=== PATIENT | female | born 1945 | race Caucasian/White ===

== ENCOUNTER → 2024-01-26 14:18 | Outpatient (REF) | payer OTHER, SELFPAY ==
[2024-01-26 19:14] LABS: ALT (SGPT) 23 U/L (0-35); AST (SGOT) 37 U/L (14-36); Albumin 4.8 g/dl (3.5-5.0); Alkaline Phosphatase 83 U/L (38-126); Blood Urea Nitrogen 33 mg/dl (7-17); Calcium 10.4 mg/dl (8.4-10.2); Carbon Dioxide 27 mmol/L (22-30); Chloride 99 mmol/L (98-107); Glucose 89 mg/dl (70-99); Potassium 5.3 mmol/L (3.5-5.1); Sodium 136 mmol/L (135-145); Total Bilirubin 0.9 mg/dl (0.2-1.3); Total Protein 7.6 g/dl (6.3-8.2); eGFR 51.43
== END ==
LOC: CLAB 14:18
PROVIDERS: ATTENDING PHYSICIAN Family Medicine
DX: N18.31 Chronic kidney disease, stage 3a (principal); R74.8 Abnormal levels of other serum enzymes
CPT/HCPCS: 36415; 80053

== ENCOUNTER 2024-04-21 17:25 | Emergency (ER) | payer OTHER, SELFPAY ==
[2024-04-21 17:27] VITALS: BP 127/69
[2024-04-21 17:47] LABS: % Basophils 0.2 % (0-2); % Eosinophils 0.5 % (0-6); % Immature Granulocytes 0.2 % (0-0.5); % Lymphocytes 15.8 % (20.5-51.1); % Neutrophils 70.3 % (42.2-75.2); Absolute Lymphocytes 0.9 10^3/uL (1.2-3.4); Absolute Monocytes 0.7 10^3/uL (0.1-0.6); Hematocrit 34.6 % (37.0-47.0); Mean Corp Hgb Conc. 34.7 g/dL (33.0-37.0); Mean Corpuscular Hgb 29.2 pg (27.0-31.0); Mean Corpuscular Volume 84.2 fL (81.0-99.0); Nucleated Red Blood Cells % 0 %; Platelet Count 152 10^3/uL (130-400); Red Blood Cell Count 4.11 10^6/uL (4.20-5.40); Red Cell Dist. Width 13.4 % (11.5-14.5); White Blood Cell Count 5.7 10^3/uL (4.8-10.8)
[2024-04-21 17:59] LABS: Lactic Acid 1.4 mmol/L (0.7-2.0)
[2024-04-21 18:01] LABS: ALT (SGPT) 79 U/L (0-35); AST (SGOT) 85 U/L (14-36); Albumin 4.6 g/dl (3.5-5.0); Alkaline Phosphatase 80 U/L (38-126); Blood Urea Nitrogen 38 mg/dl (7-17); Calcium 10.1 mg/dl (8.4-10.2); Carbon Dioxide 23 mmol/L (22-30); Chloride 101 mmol/L (98-107); Glucose 93 mg/dl (70-99); Potassium 4.7 mmol/L (3.5-5.1); Sodium 136 mmol/L (135-145); Total Bilirubin 1.2 mg/dl (0.2-1.3); Total Protein 7.4 g/dl (6.3-8.2); eGFR 41.83
[2024-04-21 18:02] LABS: Lipase 236 U/L (23-300)
[2024-04-21 19:21] VITALS: BP 115/47
--- NOTE | 2024-04-21 19:52 | ED.GENMED ---
History of Present Illness
General
Chief Complaint: Abdominal Symptoms
Source: patient
Exam Limitations: none
Time Seen by Provider: 04/21/24 18:43
Nursing documentation reviewed up to this point in time: agreed with
History of Present Illness
History of Present Illness:
79 y/o F with h/o HTN, hld
former remote breast ca
started with diarrhea 2 days ago, probably about 12 episodes watery diarrhea and then vomitnig about 7-8 times
she says the diarrhea is less and less yesterday, just a few episodes but sometimes just leaks out when she urinates
she did vomit once or twcie yesteray but hasn't vmoited and took some pedialyte this mroning
she called her pcp whol told her to come in
pt says she feel sgenerally weak
she doesn't have any abdominal ppain now, says she had some when she had the diarrhea
her diarrhea ended up turning a darker color
no OTC meds tkane
Past History
Past History
ED Past Medical History: Other (agree with pmhx)
ED Past Surgical History: Other (agree with pshx)
Social History
Personal:
Living: with family
Review of Systems
Review of Systems
Allergies reviewed?: Yes
All Other Systems: Not applicable
Phy Exam
Physical Exam
Physical Exam:
GENERAL: Alert , in no apparent distress irritable,
EYE: pupils equal and reactive
NECK: Supple
ENT: o/p clr, mmm.
CARDIAC: Regular rate and rhythm .
LUNGS: Clear breath sounds bilaterally, no acute respiratory distress, no wheezes/rales/rhonchi
ABDOMEN: Soft, without focal tenderness, no r/g, no cvat, normal bowel sounds
Rectum, no hemorrhoids, some excoriation/erythema of her anus region, heme-negative brown stool
NEUROLOGICAL: Alert and oriented, no focal neuro deficits
SKIN: Warm and dry, skin intact.
MUSCULOSKELETAL: No edema, well perfused. neg makenna's sign
PSYCH: Normal and appropriate interaction.
Course
Orders/Labs/Results
Orders:
Orders
04/21/24 17:38
Complete Blood Count/With Diff Urgent
Comprehensive Metabolic Panel Urgent
Lactic Acid Urgent
Lipase Urgent
Blood Culture Urgent
LEÓN Source: Blood/Venous
Specimen Description:
04/21/24 19:37
0.9% Sodium Chloride 1000 ml [Nss] 1,000 ml IV BOLUS
04/21/24 20:08
Lactic Acid Urgent
Abnormal Lab Results
04/21/24
17:38
RBC 4.11 L 10^6/uL
(4.20-5.40)
Hct 34.6 L %
(37.0-47.0)
Absolute Lymphs (auto) 0.9 L 10^3/uL
(1.2-3.4)
Absolute Monos (auto) 0.7 H 10^3/uL
(0.1-0.6)
Lymphocytes % 15.8 L %
(20.5-51.1)
Monocytes % 13.0 H %
(1.7-9.3)
BUN 38 H mg/dl
(7-17)
Creatinine 1.3 H mg/dL
(0.6-1.0)
AST 85 H U/L
(14-36)
ALT 79 H U/L
(0-35)
04/21/24 17:38
04/21/24 17:38
Vital Signs
Initial and Last Documented VS:
Initial Vital Signs
Temp Pulse Resp BP Pulse Ox
98.2 F 68 20 127/69 98
04/21/24 17:27 04/21/24 17:27 04/21/24 17:27 04/21/24 17:27 04/21/24 17:27
Last Documented Vital Signs
Temp Pulse Resp BP Pulse Ox
98.2 F 68 20 115/47 95
04/21/24 17:27 04/21/24 17:27 04/21/24 17:27 04/21/24 19:21 04/21/24 19:22
MDM/Problems Addressed
Differential Diagnosis Includes:
Gastroenteritis, less likely diverticulitis, ischemic colitis, colitis
MDM/Problems Addressed:
79-year-old female with hypertension and high cholesterol presents for nausea vomiting and diarrhea which sounds to be diminishing in intensity over the last 12 hours however she does feel generally weak. She has not had significant abdominal pain,
fevers, syncope or lightheadedness. She was able to tolerate some Pedialyte today. On exam she is normotensive, afebrile, nontender abdomen, heme-negative brown stool. She does have a mild LOUANN with a creatinine of that is bumped up to 1.3.
Previously she had been in the 0.9 range but then bumped up to the 1.1 in January.
I did offer IV fluids and would check a lactate since she is reporting some dark stool however it was heme-negative. Her lactic acid was normal. I did discuss imaging given the fact that she has had previous diverticulosis on colonoscopy but the
patient has no fever, no pain and symptoms are resolving and she thus declined the CAT scan that I offered. Will hydrate and anticipate DC home as a suspected viral gastroenteritis. I do appreciate the patient's mild transaminitis again which is
likely to be related to a viral infection
04/21/2024 2100
pt had only received 200 ml of fliuids and demanded to be discharged
lactic normal
precautions given.
*Critical Care Note
Total Time (30-74mins, 75-104mins- exclusive of procedures): Not Applicable
ED Attending Note
-
Portions of this chart may have been created with voice recognition software.� Occasional wrong word or��sound alike� substitutions may have occurred due to the inherent limitations of voice recognition software.
Discharge Plan
Departure
Patient Disposition: Home (Routine Discharge)
Date of Disposition: 04/21/24
Time of Disposition: 21:16
Patient with high blood pressure during this ER visit?: No
Condition: Fair
Covid-19: Not Applicable
Discharge Problem:
Gastroenteritis, Dehydration
Instructions: Viral gastroenteritis in adults, Dehydration, Adult ED
Prescriptions:
No Action
anastrozole 1 MG tablet
1 mg PO DAILY
chlorpheniramine-phenylephrine [Actifed Cold-Allergy] 1 EACH tablet
1 tab PO DAILYPRN PRN (Reason: ALLERGIES)
vitamin A 8,000 UNIT capsule
PO DAILY
amlodipine 5 MG tablet
5 mg PO BID
calcium carbonate 600 MG tablet
600 mg PO DAILY
ascorbic acid (vitamin C) [Vitamin C] 500 MG tablet
1,000 mg PO DAILY
naproxen sodium [Aleve] 220 MG tablet
220 mg PO HSPRN PRN (Reason: HIP/KNEE PAIN)
vitamin E (dl, acetate) 100 UNITS capsule
PO DAILY
cholecalciferol (vitamin D3) 2,000 UNITS tablet
2,000 unit PO DAILY
Referrals:
Celso Rider DO [Family Provider] - Follow up in 2-3 days
Activity Restrictions/Additional Instructions:
YOU LIKLEY HAVE A VIRUS CAUSING YOUR SYMPTOMS
YOUR KIDNEY FUNCTION WAS SLIGHTLY ELEVATED PROBABLY FROM DEHYDRATION
YOU WISHED TO LEAVE BEFORE YOUR IV FLUIDS WERE COMPLETED AND WITHOUT IMAGING
DRINK FLUIDS TOLEARATED
USE THE BRAT DIET (BANANAS, RICE, APPLESAUCE, TOAST) FOR DIARRHEA
RETURN FOR WORSENING SYMPTOMS, VOMITING, WEAKNESS, WORSENING DEHYDRATION, BLOODY STOOL, ABDOMINAL PAIN, FEVER OR ANY CONCERNS.
Interventions
Interventions:
*Risk Screen - Suicide Last Done: 04/21/24 17:27
*General Assessment Last Done: 04/21/24 17:27
*Neglect/Abuse Screening Last Done: 04/21/24 17:27
ID-Btxvwm-Wtvoydtpul Assessment Last Done: 04/21/24 20:17
Discharge Date and Time
Print Language: BELARUSIAN
[2024-04-21] MEDS: NSS 1000 IV (20:17)
[2024-04-21 20:35] LABS: Lactic Acid 1.4 mmol/L (0.7-2.0)
== END 2024-04-21 21:20 | disposition home or self-care (01) ==
LOC: EMR 17:25
PROVIDERS: Physician Assistant; EMERGENCY PHYSICIAN Emergency Medicine; FAMILY PHYSICIAN Family Medicine
DX: R19.7 Diarrhea, unspecified (principal); R11.10 Vomiting, unspecified; R10.9 Unspecified abdominal pain; R53.1 Weakness; K52.9 Noninfective gastroenteritis and colitis, unspecified; E86.0 Dehydration; I10 Essential (primary) hypertension; E78.00 Pure hypercholesterolemia, unspecified; K57.90 Diverticulosis of intestine, part unspecified, without perforation or abscess without bleeding; Z85.3 Personal history of malignant neoplasm of breast
CPT/HCPCS: 99284; 96360; 80053; 83605; 83690; 85025; 87040

== ENCOUNTER → 2024-12-19 10:25 | Outpatient (REF) | payer OTHER, SELFPAY | LOC: RAD 10:25 | PROVIDERS: ATTENDING PHYSICIAN Internal Medicine Hematology & Oncology; FAMILY PHYSICIAN Family Medicine | DX: R19.04 Left lower quadrant abdominal swelling, mass and lump (principal); R59.0 Localized enlarged lymph nodes | CPT/HCPCS: 76705 ==

== ENCOUNTER → 2025-06-22 10:59 | Outpatient (REF) | payer OTHER, SELFPAY ==
[2025-06-22 12:15] LABS: Hematocrit 39.1 % (37.0-47.0); Hemoglobin 13.0 g/dL (12.0-16.0); Mean Corp Hgb Conc. 33.2 g/dL (33.0-37.0); Mean Corpuscular Volume 86.5 fL (81.0-99.0); Nucleated Red Blood Cells % 0 %; Platelet Count 165 10^3/uL (130-400); Red Cell Dist. Width 13.3 % (11.5-14.5)
[2025-06-22 12:58] LABS: ALT (SGPT) 23 U/L (0-35); AST (SGOT) 33 U/L (14-36); Albumin 4.7 g/dl (3.5-5.0); Alkaline Phosphatase 71 U/L (38-126); Blood Urea Nitrogen 21 mg/dl (7-17); Calcium 10.6 mg/dl (8.4-10.2); Carbon Dioxide 29 mmol/L (22-30); Chloride 103 mmol/L (98-107); Glucose 89 mg/dl (70-99); Potassium 5.0 mmol/L (3.5-5.1); Sodium 138 mmol/L (135-145); Total Protein 7.5 g/dl (6.3-8.2); eGFR > 60.00
== END ==
LOC: WDC 10:59
PROVIDERS: ATTENDING PHYSICIAN Internal Medicine Hematology & Oncology; FAMILY PHYSICIAN Family Medicine
DX: Z12.31 Encounter for screening mammogram for malignant neoplasm of breast (principal); H53.131 Sudden visual loss, right eye; R59.0 Localized enlarged lymph nodes; C50.412 Malignant neoplasm of upper-outer quadrant of left female breast; C50.919 Malignant neoplasm of unspecified site of unspecified female breast; R23.2 Flushing; L50.9 Urticaria, unspecified; I10 Essential (primary) hypertension; R27.0 Ataxia, unspecified
CPT/HCPCS: 36415; 80053; 85025

== ENCOUNTER → 2025-07-16 10:19 | Outpatient (REF) | payer OTHER, SELFPAY ==
[2025-07-16 10:57] LABS: Urine Character Clear (Clear)
[2025-07-16 11:22] LABS: Urine Red Blood Cell 0-2 /HPF (0-2)
[2025-07-16 11:22] LABS: HDL Cholesterol 69 mg/dl; LDL Cholesterol, Calculated 131 mg/dl; Very Low Density Lipoprotein 20 mg/dl (0-30)
[2025-07-16 11:46] LABS: Microalbumin, Random Urine 0.9 mg/dl (0.6-1.7)
[2025-07-16 11:55] LABS: TSH 0.12 uIU/ml (0.47-4.68)
[2025-07-16 13:17] LABS: Microalb - Urine Creatinine 124.400 mg/dl
== END ==
LOC: REG 10:19
PROVIDERS: ATTENDING PHYSICIAN Family Medicine
DX: Z00.00 Encounter for general adult medical examination without abnormal findings (principal); E78.00 Pure hypercholesterolemia, unspecified; Z13.29 Encounter for screening for other suspected endocrine disorder; N18.31 Chronic kidney disease, stage 3a
CPT/HCPCS: 36415; 80061; 81003; 81015; 82043; 82570; 84443